=== PATIENT | female | born 1975 | race Caucasian/White ===

== ENCOUNTER 2016-09-14 06:14 | Day surgery (SDC) | payer OTHER ==
[2016-09-12 09:31] VITALS: BMI 33.5
[~2016-09-14 06:14] MED LIST: LACTATED RINGERS 1,000 ML IV SCH
[2016-09-14] MEDS ORDERED: LACTATED RINGERS 1,000 ML IV ONE (06:50)
[2016-09-14] MEDS ORDERED: LIDOCAINE 1% 20 ML VIAL (10MG/ML) FOR IV START INTRADERMA ONE (06:50)
[2016-09-14 06:51] VITALS: RESP 18; TEMP 97.7
[2016-09-14] MEDS ORDERED: fentaNYL (PF) 50 MCG/ML 2 ML AMP ONE (07:31)
[2016-09-14] MEDS ORDERED: TRIAMCINOLONE ACETONIDE 40 MG/ML 1 ML VIAL ONE (07:31)
[2016-09-14] MEDS ORDERED: MIDAZOLAM 2 MG/2 ML VIAL ONE (07:31)
[2016-09-14] MEDS ORDERED: BUPIVACAINE (PF) 0.5% 30 ML VIAL ONE (07:31)
--- NOTE | 2016-09-14 08:23 | P.PCN ---
Date of Procedure: 09/14/16 Procedure(s) Performed: PREOPERATIVE DIAGNOSIS: 1-Lumbar Spondylosis with Facet Arthropathy without myelopathy. 2- Lumber degenerative disc disease POSTOPERATIVE DIAGNOSIS: 1- Lumbar Spondylosis with Facet Arthropathy without myelopathy. 2- Lumber degenerative disc disease PROCEDURES : Right Radiofrequency thermocoagulation, L2-3 , L3-L4, L4-L5, and L5-S1 medial branch, with fluoroscopic guidance ANESTHESIA: IV sedation with versed 2 mg and fentaneyl 150 mcg and local infiltration with lidocaine 1% 6 ml EBL: Minimal PROCEDURE INDICATION: The patient with low back pain secondary to lumbar facet arthropathy who had more than 50% relief of her pain with previous diagnostic lumbar medial branch block with bupivacaine. PROCEDURE DESCRIPTION / TECHNIQUE: The patient was seen and identified in the preoperative area. Risks, benefits, complications, including but not limited to risk of infection ,bleeding , allergic reactions to the medications and no complete pain releife , and alternatives were discussed with the patient, the patient agreed to proceed with the procedure and signed the consent. IV was started. Vital signs remained stable throughout the procedure. Patient was taken to the OR and time out was completed. The patient was placed in the prone position on the procedure table. The lumber area was prepped and draped in the usual sterile fashion. . Vital signs were closely monitored during the procedure .IV sedation was used during the procedure to decrease patients anxiety. Using AP and then oblique fluoroscopy, the ``eye of the Daryl dog corresponding to the connection between the superior and transverse articular processes of right L2 ,L3, L4, and L5 were identified, marked, and localized with 1% lidocaine. Subsequently, a [id number] radiofrequency cannula with a 10-mm active tip was advanced guided by fluoroscopy to each of the ``eyes of the Daryl dog at right L2 , L3, L4, and L5. Each site then underwent sensory testing at 50 Hz and 0 to 1 volt and motor testing at 2.5 Hz and 0 to 3 volt with local stimulation, but no radicular symptoms down the legs. Thereafter the right L2-3 ,L3-4, L4-5, and L5-S1 sites underwent radiofrequency thermocoagulation at 80 degrees celsius for 90 seconds after injecting 0.5 ml of PF lidocaine 1%. then After the thermocoagulation done , 1 ml of the block solution containing Kenalog 40 mg and 3 ml of marain 0.5% was injected at the right L2-3 , L3-4 , L4-5 , and L5-S1, levels after negative aspiration of CSF and blood and with no paresthesias. Cannulas were retracted while injecting lidocaine 1% until the needle is out. At the end of the procedure, the skin was cleansed and bandages were applied. COMPLICATIONS: No acute complications. DISPOSITION / PLANS: The patient was placed in a supine position and transferred to the recovery area in a stable condition for observation and was discharged from the recovery room after meeting discharge criteria. Home discharge instructions given to the patient by the staff. The patient was reexamined prior to discharge. The patient will schedule a follow up in the clinic in 2-4 weeks.
--- NOTE | 2016-09-14 08:27 | FL ---
EXAMINATION TYPE: FL guided pain mgmt statistic DATE OF EXAM: 09/14/2016 8:18 AM HISTORY: Pain Right side radiofrequency lumbar 13 sec fluoro
[2016-09-14] MEDS ORDERED: IV FLUID CONTINUATION 1,000 ML IV ONE (08:57)
[2016-09-14 08:59] VITALS: BP 117/75; PULSE 75
== END 2016-09-14 09:11 | disposition home or self-care (01) ==
LOC: ORPAIN 06:14
PROVIDERS: ATTEND Specialist
DX: M47.816 Spondylosis without myelopathy or radiculopathy, lumbar region (principal); M46.96 Unspecified inflammatory spondylopathy, lumbar region; M51.36 Other intervertebral disc degeneration, lumbar region
CPT/HCPCS: 81025; 64635; 64636; J2250; J3301; J3010

== ENCOUNTER → 2016-10-25 | Outpatient (CLI) | payer OTHER ==
[2016-10-25 14:54] VITALS: BP 104/70; PULSE 88; RESP 18; TEMP 98.2
--- NOTE | 2016-10-25 15:13 | P.PN ---
Progress Note - Text Patient returns for followup for chronic "all over" pain. Patient recently underwent right lumbar RFA, which provided some relief for only two days' interval and then she developed excruciating pain when she worked at her job at [employer] for only 4-5 hours. Patient continues on Robaxin medications for pain with mild relief. Patient denies adverse drug effects from medications. Today , pt denies new-onset weakness, bowel/bladder incontinence, or any other signs or symptoms of cauda equina syndrome. There are no signs of acute intoxication, and no indications of medication diversion or overuse. In addition to above, 13-point review of systems is also negative for chest pain , shortness of breath, changes in vision, changes in hearing, new onset weakness , abdominal pain, diarrhea, extreme fatigue, malaise, fever, skin changes, homicidal or suicidal ideation, or bowel or bladder incontinence. Vital Signs: Reviewed in EMR Gen: WDWN, AAOx3, NAD HEENT: NCAT, EOMI, hearing grossly normal Pulm: resp unlabored Abd: soft, NT, ND Neck: supple, trachea midline TTP cervical paravertebral area, thoracic paravertebral area, lumbar paravertebral area Neuro: CN II-XII grossly intact, muscle strength lower extremities PRESERVED Imaging: Reviewed in EMR Assessment: 1. possible fibromyalgia 2. chronic pain syndrome Plan: 1. Explanation: Opioid and psychological risk scores were reviewed. Diagnoses , prognoses, and multiple treatment options including but not limited to physical therapy, interventional therapies, adjuvant medical therapies, narcotic medication therapies, and surgery were discussed with the patient and all questions were answered to the patient's satisfaction. 2. Opioid agreement: no opioids prescribed today 3. Counseling: The patient was counseled extensively on BODY MASS INDEX, EXERCISE. Specifically, the patient was instructed regarding the importance of weight control and exercise in the context of both chronic pain and overall health. 4. Procedures: none for now 5. Consultations: None 6. Investigations: None 7. Medications: Robaxin 750 BID #60 with five refills 8. Disposition: f/u as needed. Patient has not requested opioids and uses THC. She got minimal relief from lumbar RFA, so it is my opinion that it may not be worth continuing with injections for her. I will refer her to Dr. Sandoval , a physical medicine and fire protection specialist, to prescribe a good exercise and physical therapy regimen for her and possibly perform a functional capacity evaluation as well. Patient does not want any more injections and will follow up with our clinic as needed. PQRS measures: 1-Patient's medications are documented in the chart. 2-Tobacco use is positive, counseling given 3-Patient has not had a pneumococcal vaccine. 4-Advanced care planning discussed, patient unable to give. 5-Opioid contract signed with the patient. 6-follow up PRN 7-Patient's blood pressure measured and documented, and patient will follow up with the primary care due to hypertension. 8-Patient's weight was measured, and body mass index ABOVE the normal limits, and counseling was done. Patient instructed to follow up with PCP. 9-Patient WAS NOT identified as an unhealthy alcohol user.
== END | disposition home or self-care (01) ==
LOC: PNWHC3 14:23
PROVIDERS: ATTEND Anesthesiology
DX: G89.4 Chronic pain syndrome (principal); I10 Essential (primary) hypertension; F17.200 Nicotine dependence, unspecified, uncomplicated; Z71.6 Tobacco abuse counseling; Z71.3 Dietary counseling and surveillance; Z98.890 Other specified postprocedural states; Z79.899 Other long term (current) drug therapy
CPT/HCPCS: 99211

== ENCOUNTER → 2017-03-23 | Outpatient (CLI) | payer OTHER ==
--- NOTE | 2017-03-27 11:07 | MM ---
Reason for exam: screening (asymptomatic). Last mammogram was performed 1 year ago. Physical Findings: A clinical breast exam by your physician is recommended on an annual basis and results should be correlated with mammographic findings. MG Screening Mammo w CAD Bilateral CC and MLO view(s) were taken. Prior study comparison: March 22, 2016, bilateral MG screening mammo w CAD. October 17, 2014, mammogram, performed at [facility]. November 21, 2012, mammogram, performed at [facility]. The breast tissue is heterogeneously dense. This may lower the sensitivity of mammography. There is a new 6mm mass in the upper outer quadrant of the right breast at middle depth 6-7cm from nipple. Additional views will be performed for this mass. This finding is changed when compared with previous exams. ASSESSMENT: Incomplete: need additional imaging evaluation, BI-RAD 0 RECOMMENDATION: Special view mammogram of the right breast. If lesion persists on supplemental views, image directed ultrasound is recommended. [facility] will attempt to contact patient to return for supplemental views and ultrasound if indicated.
== END | disposition home or self-care (01) ==
LOC: RADMAMWWP 11:05
PROVIDERS: ATTEND Family Medicine
DX: Z12.31 Encounter for screening mammogram for malignant neoplasm of breast (principal)

== ENCOUNTER → 2017-03-28 | Outpatient (CLI) | payer OTHER ==
--- NOTE | 2017-03-28 09:17 | MM ---
Reason for exam: additional evaluation requested from abnormal screening. Last mammogram was performed less than 1 month ago. History: Family history of breast cancer in paternal cousin at age 35. Taking hormonal contraceptives beginning at age 40. Physical Findings: Nurse did not find any significant physical abnormalities on exam. MG Work Up Mamm w CAD RT Spot compression CC, spot compression MLO, and ML view(s) were taken of the right breast. Prior study comparison: March 23, 2017, bilateral MG screening mammo w CAD. March 22, 2016, bilateral MG screening mammo w CAD. October 17, 2014, mammogram, performed at [facility]. November 21, 2012, mammogram, performed at [facility]. The breast tissue is heterogeneously dense. This may lower the sensitivity of mammography. No distinct mass persists on additional views. These results were verbally communicated with the patient and result sheet given to the patient on 03/28/17. ASSESSMENT: Negative, BI-RAD 1 RECOMMENDATION: Return to routine screening mammogram schedule for both breasts.
== END | disposition home or self-care (01) ==
LOC: RADMAMWWP 08:13
PROVIDERS: ATTEND Family Medicine
DX: R92.8 Other abnormal and inconclusive findings on diagnostic imaging of breast (principal)

== ENCOUNTER 2017-05-15 09:00 | Day surgery (SDC) | payer OTHER ==
[2017-05-12 12:26] VITALS: BMI 38.7
[~2017-05-15 09:00] MED LIST changes: +LIDOCAINE 1% 20 ML VIAL (10MG/ML) FOR IV START INTRADERMA PRN
[2017-05-15 09:16] VITALS: RESP 16; TEMP 98.4
[2017-05-15] MEDS ORDERED: MIDAZOLAM 2 MG/2 ML VIAL ONE (10:05)
[2017-05-15] MEDS ORDERED: PROPOFOL 10 MG/ML 20 ML VIAL IV ONE (10:05)
[2017-05-15] MEDS ORDERED: LIDOCAINE 1% INJ 10MG/ML (20 ML MDV) ONE (10:05)
--- NOTE | 2017-05-15 10:29 | P.PCN ---
Date of Procedure: 05/15/17 Procedure(s) Performed: Procedure: Esophagogastroduodenoscopy and biopsy. Preoperative diagnosis: Chronic reflux symptoms requiring PPI therapy. Postoperative diagnosis: 1. Small sliding hiatal hernia with no obvious esophagitis or complicated reflux disease. 2. Mild antral gastritis. 3. Multiple biopsies obtained from the duodenum, antrum and esophagus. Preparation sedation: Were provided by anesthesia. Brief clinical history: The patient is a 51-year-old female who was evaluated in our office earlier this month referred regarding chronic reflux symptoms that responded to omeprazole therapy. This evaluation is scheduled because of recurrence of her symptoms if she misses a single dose of medication and to rule out other pathology. Procedure: With the patient on her left lateral decubitus position and after informed consent and adequate sedation, I passed the Olympus-GIF 160 video upper endoscope through the cricopharyngeus down the esophagus. GE junction was around 37 cm from the incisors and there was a small sliding hiatal hernia around 1 cm in size. The esophagus did not show any obvious erosions, ulcers, strictures or Velazquez's esophagus. The endoscope was then passed into the stomach which was insufflated with air and inspected in detail including the retroflex view in the cardia. There was some mottling and erythema in the antrum but no ulcers or erosions. Pyloric channel, duodenal bulb, post bulbar area and descending duodenum appeared within normal limits. Because of her symptoms, I obtained biopsies from the duodenum, antrum and esophagus then the endoscope was withdrawn. The patient tolerated the procedure well. Plan: The patient was reassured. Will await biopsy results. She will follow- up with you as planned. We would recommend that the patient continue antireflux diet and measures and to continue acid suppressive therapy at the minimal dose and frequency necessary to keep her symptoms under control.
[2017-05-15 10:51] VITALS: BP 140/81; PULSE 65
== END 2017-05-15 11:04 | disposition home or self-care (01) ==
LOC: ORWHC2ENDO 09:00
DX: K29.50 Unspecified chronic gastritis without bleeding (principal); K21.9 Gastro-esophageal reflux disease without esophagitis; K44.9 Diaphragmatic hernia without obstruction or gangrene; Z72.0 Tobacco use; F39 Unspecified mood [affective] disorder; M19.90 Unspecified osteoarthritis, unspecified site; Z79.1 Long term (current) use of non-steroidal anti-inflammatories (NSAID); Z79.891 Long term (current) use of opiate analgesic; Z79.899 Other long term (current) drug therapy
CPT/HCPCS: 81025; 88305; 88342; 43239; J2250; J2001; J2704

== ENCOUNTER → 2017-11-08 | Outpatient (CLI) | payer OTHER ==
--- NOTE | 2017-11-08 07:49 | MR ---
EXAMINATION TYPE: MR love wo con DATE OF EXAM: 11/08/2017 COMPARISON: 03/22/2016 HISTORY: Cervicalgia / Low back pain TECHNIQUE: T1 and T2 axial and sagittal images of the lumbar spine are submitted. FINDINGS: There is no abnormal signal seen within the visualized spinal cord or paraspinal soft tissu es. At L1-2 there is no disc herniation or canal stenosis. No foraminal encroachment. At L2-3 there is moderate to severe degenerative disc disease with central disc disc protrusion great er paracentrally the right. Facet arthropathy and ligamentum flavum are noted to be hypertrophied. Th is results in compression of the thecal sac and central spinal stenosis. At L3-4 there is broad-based central disc protrusion with marked hypertrophy of the ligamentum flavum and facet joints. Findings appear to be stable with moderate to severe central stenosis. There is si gnificant bilateral foraminal encroachment greater on the right with disc protrusion extending greate r laterally to the right. Finding is stable. At L4-5 there is diffuse central disc protrusion with facet arthropathy and ligamentum flavum hypertr ophy. There is moderate to severe central stenosis is stable from previous. At L5-S1 there is degenerative disc disease and advanced facet arthropathy. There is mild bilateral f oraminal encroachment. Borderline central stenosis due to diminutive spinal canal. IMPRESSION: 1. Stable MRI lumbar spine demonstrating multilevel degenerative disc disease with multilevel disc pr otrusions seen in association with hypertrophic changes. Findings result in multilevel significant ca nal stenosis with the most marked findings at level L2-3, L3-4, and L4-L5. EXAMINATION TYPE: MR guzman wo con DATE OF EXAM: 11/08/2017 COMPARISON: 03/22/2016 HISTORY: Cervicalgia / Low back pain TECHNIQUE: T1 sagittal and coronal, T2 sagittal, and gradient echo axial views of the cervical spine are submitted. FINDINGS: The cranial cervical junction is preserved. There is no abnormal signal seen within the sp inal cord or paraspinal soft tissues. At C2-3 there is no disc herniation or canal stenosis. Mild hypertrophic changes of facet joints. Tracy ral foramina patent. At C3-4 there is facet arthropathy greater on the right with uncovertebral joint hypertrophy greater on the right. Minimal right-sided neural foraminal encroachment is stable. No Canal stenosis. At C4-5 there is Central broad-based left paracentral disc bulging with displacement of thecal sac bu t no spinal cord contact appear stable. Facet arthropathy noted with no significant foraminal encroac hment. At C5-6 there is mild broad-based central disc bulging but no canal stenosis. No foraminal encroachme nt. At C6-7 there is no disc herniation or canal stenosis. No foraminal encroachment. At C7-T1 there is no disc herniation or canal stenosis. No foraminal encroachment. IMPRESSION: 1. Stable MRI demonstrating disc bulging at C4-5 and C5-C6 deformity of the thecal sac but no canal stenosis. 2. Right-sided facet arthropathy and uncovertebral joints C3-C4 results in mild right foraminal encro achment.
== END | disposition home or self-care (01) ==
LOC: RADMRIMAIN 06:06
PROVIDERS: ATTEND Psychiatry & Neurology Neurology
DX: M50.221 Other cervical disc displacement at C4-C5 level (principal); M46.92 Unspecified inflammatory spondylopathy, cervical region; M51.36 Other intervertebral disc degeneration, lumbar region; M48.061 Spinal stenosis, lumbar region without neurogenic claudication; M51.26 Other intervertebral disc displacement, lumbar region
CPT/HCPCS: 72141; 72148

== ENCOUNTER → 2018-03-06 | Outpatient (CLI) | payer OTHER ==
--- NOTE | 2018-03-06 13:28 | US ---
EXAMINATION TYPE: US abdomen complete DATE OF EXAM: 03/06/2018 COMPARISON: NONE CLINICAL HISTORY: R74.8 Elevated Alkaline Phospate Level. Abnormal labs, no pain EXAM MEASUREMENTS: Liver Length: 16.6 cm Gallbladder Wall: 0.2 cm CBD: 0.3 cm CHD: 0.3 cm Spleen: 11.1 cm Right Kidney: 9.7 x 4.9 x 4.6 cm Left Kidney: 11.5 x 4.2 x 5.1 cm Limited visualization due to patient body habitus Pancreas: Head and tail not well visualized due to overlying bowel gas Liver: Portions seen appear wnl Gallbladder: wnl Evidence for sonographic Chatterjee's sign: neg CBD: wnl CHD: wnl Spleen: wnl Right Kidney: wnl Left Kidney: wnl Upper IVC: wnl Abd Aorta: wnl The visualized liver is slightly heterogeneous. The intrahepatic portion of the IVC and visualized a bdominal aorta are within normal limits. There is no evidence of cholelithiasis. Common bile duct i s unremarkable. The visualized portions of the pancreas are homogenous. Portions of the head and keenan l are obscured by overlying bowel gas on images saved The spleen is unremarkable. Kidneys are symmet miguel and free of hydronephrosis. No renal lesions are seen. IMPRESSION: No suspicious finding is seen to account for patient's symptoms.
== END | disposition home or self-care (01) ==
LOC: RADUSWWP 12:13
PROVIDERS: ATTEND Family Medicine
DX: R74.8 Abnormal levels of other serum enzymes (principal)
CPT/HCPCS: 76700

== ENCOUNTER → 2018-03-29 | Outpatient (CLI) | payer MEDICARE, OTHER ==
--- NOTE | 2018-03-29 14:54 | US ---
EXAMINATION TYPE: US venous doppler duplex LE BI DATE OF EXAM: 03/29/2018 2:42 PM COMPARISON: NONE CLINICAL HISTORY: M25.472 M25.471 Effusion of left and right ankle. SIDE PERFORMED: Bilateral TECHNIQUE: The lower extremity deep venous system is examined utilizing real time linear array sonog robert with graded compression, doppler sonography and color-flow sonography. VESSELS IMAGED: External Iliac Vein (EIV) Common Femoral Vein Deep Femoral Vein Greater Saphenous Vein * Femoral Vein Popliteal Vein Small Saphenous Vein * (* superficial vessels) Right Leg: Negative for DVT Left Leg: Negative for DVT Grayscale, color doppler, spectral doppler imaging performed of the deep veins of the bilateral lower extremities. There is normal flow, compressibility, vascular waveforms. IMPRESSION: No ultrasound evidence for acute DVT in either lower extremity.
== END | disposition home or self-care (01) ==
LOC: RADUSWWP 14:11
PROVIDERS: ATTEND Family Medicine
DX: M25.471 Effusion, right ankle (principal); M25.472 Effusion, left ankle
CPT/HCPCS: 93970

== ENCOUNTER → 2018-04-09 | Outpatient (CLI) | payer MEDICARE, OTHER ==
--- NOTE | 2018-04-10 11:02 | MM ---
Reason for exam: screening (asymptomatic). Last mammogram was performed 1 year ago. History: Family history of breast cancer in paternal cousin at age 35. Taking hormonal contraceptives beginning at age 40. Physical Findings: A clinical breast exam by your physician is recommended on an annual basis and results should be correlated with mammographic findings. MG Screening Mammo w CAD Bilateral CC and MLO view(s) were taken. Prior study comparison: March 28, 2017, right breast MG work up mamm w CAD RT. March 23, 2017, bilateral MG screening mammo w CAD. The breast tissue is heterogeneously dense. This may lower the sensitivity of mammography. There is no discrete abnormality. ASSESSMENT: Negative, BI-RAD 1 RECOMMENDATION: Routine screening mammogram of both breasts in 1 year.
== END | disposition home or self-care (01) ==
LOC: RADMAMWWP 09:10
PROVIDERS: ATTEND Obstetrics & Gynecology
DX: Z12.31 Encounter for screening mammogram for malignant neoplasm of breast (principal)
CPT/HCPCS: 77067

== ENCOUNTER → 2018-10-26 | Outpatient (CLI) | payer MEDICARE, OTHER | END | disposition home or self-care (01) | LOC: PROCWHC3 12:17 | PROVIDERS: ATTEND Family Medicine | DX: R06.2 Wheezing (principal); R05 Cough | CPT/HCPCS: 87502 ==

== ENCOUNTER → 2018-12-27 | Outpatient (CLI) | payer MEDICARE, OTHER ==
--- NOTE | 2018-12-27 19:03 | CONS ---
CONSULTATION DATE OF SERVICE: 12/27/2018 This patient is a 43-year-old lady who has been evaluated in the sleep center for possible obstructive sleep apnea-hypopnea syndrome. HISTORY OF PRESENT ILLNESS/SLEEP-WAKE EVALUATION: The patient's usual sleep schedule on weekdays is from 2:30 p.m. to 9:45 p.m. She works from 11 p.m. to 7 a.m. On weekends, she sleeps from 8 p.m. to 10 a.m. No problems with falling asleep. She has a TV set in the bedroom, sleeps on the side position. She has loud snoring and wakes up from sleep with gasping for air, sweating and dry mouth. She goes to the restroom once at night. In the morning she wakes up tired, feels sleepy during the day with 2 cups of coffee daily. [place] Sleepiness Scale is 9. No history of hypnagogic hallucinations, sleep paralysis or cataplexy. PAST MEDICAL HISTORY: 1. Anxiety. 2. Depression. 3. Acid reflux. PAST SURGICAL HISTORY: 1. Surgery for carpal tunnel syndrome bilaterally. 2. Uterus ablation for bleeding. 3. D&C. MEDICATIONS: 1. Xanax. 2. Lamictal. 3. Celexa. 4. Omeprazole. SOCIAL HISTORY: Positive for smoking for about 30 years, starting at 1-1/2 pack a day down to half pack a day now. Alcohol consumption rarely. FAMILY HISTORY: Epilepsy, arthritis, sleep apnea. REVIEW OF SYSTEMS: Awakenings from sleep, tiredness and sleepiness. PHYSICAL EXAMINATION: GENERAL: A pleasant lady without distress. VITAL SIGNS: BP 119/67, HR 83, RR 18, height 5 feet 6 inches, weight 263.6 pounds, body mass index 42.4, temperature 98.7, oxygen saturation at room air 98%. HEENT: PERRLA, EOMI. Evaluation of oropharynx showed tongue protrudes midline. Low position of soft palate. Mallampati IV. Restriction of nasal breathing. NECK: Supple. No JVD. Thyroid is not palpable. Wide neck; 16-3/4 inches in circumference. LUNGS: Clear to percussion and to auscultation. Good air exchange. No wheezing or rhonchi. HEART: S1, S2 regular. No murmurs, gallops or rubs. ABDOMEN: Obese. EXTREMITIES: No clubbing or cyanosis. MEDIA LIBRARIAN: Awake, alert, and oriented X3. Cranial nerves 2 to 7 intact. There is no fasciculation or atrophy. noted. No focal deficits observed. IMPRESSION: 1. Loud snoring, awakenings from sleep with gasping for air and witnessed episodes of stopped breathing, wide neck, low position of soft palate, sleepiness; obstructive sleep apnea-hypopnea syndrome. 2. Obesity with body mass index of 42.4. 3. Acid reflux. 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 5. History of carpal tunnel syndrome, status post surgical treatment bilaterally. 6. Status post uterus ablation for bleeding. 7. Status post dilatation and curettage. 8. History of smoking for about 30 pack/years. At present the patient smokes about half a pack a day. PLAN: 1. Polysomnography for evaluation of patient's breathing during sleep. 2. CPAP/BiPAP titration if sleep study confirms obstructive sleep apnea-hypopnea syndrome. 3. Preferable position during sleep on the side. 4. No driving if patient feels any sleepiness. 5. I will see patient for follow up visit to explain results of testing and following plan. Thank you very much for referring this patient for consultation. Sincerely, Filemon Lynch MD, PhD, FAASM Diplomat of [employer] Clerk Stenographer of [facility] [place] MMODL / PAULN: [id number] /
== END | disposition home or self-care (01) ==
LOC: SLEEP 14:44
PROVIDERS: ATTEND Internal Medicine
DX: G47.33 Obstructive sleep apnea (adult) (pediatric) (principal); E66.9 Obesity, unspecified; K21.9 Gastro-esophageal reflux disease without esophagitis; F17.210 Nicotine dependence, cigarettes, uncomplicated; Z68.41 Body mass index [BMI] 40.0-44.9, adult; Z87.39 Personal history of other diseases of the musculoskeletal system and connective tissue; Z98.890 Other specified postprocedural states; Z79.899 Other long term (current) drug therapy
CPT/HCPCS: 99211

== ENCOUNTER → 2019-02-07 | Outpatient (CLI) | payer MEDICARE, OTHER ==
--- NOTE | 2019-02-07 19:08 | PN ---
PROGRESS NOTE DATE OF SERVICE: 02/07/2019 43-year-old lady who has been followed in Sleep Center to discuss results of the sleep study and following plan. The patient had sleep study on 12/31/2018 and today discussed results of sleep study with the patient in detail. This study did not show any significant respiratory abnormalities during the sleep. Total apnea-hypopnea index was 4. No obstructive apneas documented, only a few hypopneas and 1 central apnea. During the test, the patient was on the back position which is usually worse for respiration and at home she usually sleeps on the side. Sometimes patient feels sleepiness during the day. [place] Sleepiness Scale is 10. MEDICATIONS: 1. Xanax p.r.n. basis. 2. Lamictal. 3. Celexa. 4. Omeprazole. 5. PHYSICAL EXAM: Patient in no distress. BP 140/67, HR 72, RR 16, weight 265.4, oxygen saturation at room air 98%, temperature 98.2. Oropharynx low position of soft palate. Mallampati 3. Neck Supple, no JVD. Thyroid is not palpable. LUNGS Clear to percussion and to auscultation. Good air exchange. No wheezing or rhonchi. HEART S1, S2 regular. No murmurs, gallops, or rubs. ABDOMEN: Obese. Soft and nontender. Bowel sounds are present. No organomegaly appreciated. EXTREMITIES No clubbing or cyanosis. TOWER OBSERVER Awake, alert, and oriented X3. Cranial nerves 2 to 7 intact. There is no fasciculation or atrophy. noted. No focal deficits observed. IMPRESSION: 1. No significant abnormalities of respirations by results of polysomnogram. 2. Obesity. 3. Acid reflux. 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 5. History of carpal tunnel syndrome, status post surgical treatment bilaterally. 6. Status post uterus ablation for bleeding. 7. Status post D and C. 8. History of smoking for 30 pack years. Patient smokes presently about half pack a day or less than half pack a day. 9. Episodes of sweating and possibly hot flashes presently, probably perimenopause. PLAN: 1. Losing weight. 2. Sleep hygiene with regular time in bed for at least 8 hours. 3. Preferable position during the sleep on the side and slightly up. 4. No driving if feeling sleepiness. 5. Plan followup visit in 1 year or earlier if patient has problems. Thank you very much for allowing me to participate in management of your patient. Sincerely, Filemon Lynch MD, PhD, FAASM Diplomat of [employer] Traffic Operations Manager of [facility] [place] MMODL / PAULN: [id number] /
== END | disposition home or self-care (01) ==
LOC: SLEEP 14:47
PROVIDERS: ATTEND Internal Medicine
DX: E66.9 Obesity, unspecified (principal); K21.9 Gastro-esophageal reflux disease without esophagitis; R61 Generalized hyperhidrosis; F17.210 Nicotine dependence, cigarettes, uncomplicated; Z87.39 Personal history of other diseases of the musculoskeletal system and connective tissue; Z98.890 Other specified postprocedural states; Z79.899 Other long term (current) drug therapy

== ENCOUNTER → 2019-05-14 | Outpatient (CLI) | payer MEDICARE, OTHER ==
--- NOTE | 2019-05-16 09:43 | MM ---
Reason for exam: screening (asymptomatic). Last mammogram was performed 1 year and 1 month ago. History: Family history of breast cancer in paternal cousin at age 35. Taking hormonal contraceptives beginning at age 40. Physical Findings: A clinical breast exam by your physician is recommended on an annual basis and results should be correlated with mammographic findings. MG Screening Mammo w CAD Bilateral CC and MLO view(s) were taken. Prior study comparison: April 09, 2018, bilateral MG screening mammo w CAD. March 28, 2017, right breast MG work up mamm w CAD RT. There are scattered fibroglandular densities. No significant changes when compared with prior studies. ASSESSMENT: Negative, BI-RAD 1 RECOMMENDATION: Routine screening mammogram of both breasts in 1 year.
== END ==
LOC: RADMAMWWP 14:52
PROVIDERS: ATTEND Family Medicine
DX: Z12.31 Encounter for screening mammogram for malignant neoplasm of breast (principal)
CPT/HCPCS: 77067

== ENCOUNTER → 2019-06-14 | Outpatient (CLI) | payer MEDICARE, OTHER ==
--- NOTE | 2019-06-14 08:37 | US ---
EXAMINATION TYPE: US abdomen complete DATE OF EXAM: 06/14/2019 COMPARISON: US 2018 CLINICAL HISTORY: R74.8 elevated alkaline phosphate level. Elevated liver enzymes, patient states no other symptoms. EXAM MEASUREMENTS: Liver Length: 16.3 cm Gallbladder Wall: 0.1 cm CBD: 0.4 cm Spleen: 12.2 cm Right Kidney: 10.7 x 4.8 x 6.2 cm Left Kidney: 11.3 x 5.6 x 5.5 cm Difficult and limited study due to patient body habitus Pancreas: visualized portions wnl, limited by overlying midline bowel gas Liver: mildly course echotexture Gallbladder: wnl Evidence for sonographic Chatterjee's sign: no CBD: visualized portions wnl, limited by overlying bowel gas Spleen: visualized portions wnl, limited by overlying bowel gas Right Kidney: wnl Left Kidney: wnl Upper IVC: wnl Abd Aorta: wnl The visualized liver is heterogeneous. No suspicious intrahepatic ductal dilatation. The intrahepati c portion of the IVC and visualized abdominal aorta are within normal limits. There is no evidence o f cholelithiasis. Common bile duct is unremarkable. The visualized portions of the pancreas are hector ogenous. The spleen is unremarkable. Kidneys are symmetric and free of hydronephrosis. No renal le sions are seen. IMPRESSION: Heterogeneous hyperechoic appearance of the liver redemonstrated likely on basis of diffu se fatty infiltration.
== END | disposition home or self-care (01) ==
LOC: RADUSWWP 07:44
PROVIDERS: ATTEND Family Medicine
DX: R74.8 Abnormal levels of other serum enzymes (principal)
CPT/HCPCS: 76700

== ENCOUNTER → 2020-05-25 | Outpatient (CLI) | payer MEDICARE, OTHER ==
--- NOTE | 2020-05-26 06:53 | US ---
EXAMINATION TYPE: US transvaginal DATE OF EXAM: 05/25/2020 COMPARISON: NONE CLINICAL HISTORY: N92.0 MENORRHAGIA WITH REGULAR CYCLES. Menorrhagia with regular cycles. Hx ablation , tubal ligation. . TECHNIQUE: Transvaginal (TV). Date of LMP: Unknown EXAM MEASUREMENTS: Uterus: 9.2 x 5.2 x 4.3 cm Endometrial Stripe: Limited, measured at 0.7 cm Right Ovary: 3.4 x 1.8 x 2.0 cm Left Ovary: 2.8 x 1.8 x 1.3 cm 1. Uterus: Anteverted Appears very heterogeneous. Multiples subcentimeter anechoic areas in cervix. Largest measures: 0.9 x 0.6 x 0.7 cm. Complex, mostly anechoic area seen mid uterus measurin.7 x 0.8 x 0.5 cm. 2. Endometrium: Limited visibility. 3. Right Ovary: Complex area seen measurin.7 x 1.5 x 1.6 cm. Ovary is positioned posterior to th e uterus. 4. Left Ovary: Appears to be wnl. 5. Bilateral Adnexa: Appear wnl. 6. Posterior cul-de-sac: Minimal fluid seen measurin.3 x 0.6 x 1.0 cm. Heterogeneous uterus with tiny marginal trapped fluid lower uterine segment and/or cervical canal. Po or visualization of the endometrium which does not appear suspiciously thickened. Trace free fluid pe lvic cul-de-sac. Some nabothian and/or endometrial cysts are present. Right ovary has heterogeneous 1.8 cm peripheral hypervascular hypoechoic lesion suspicious for hemorr hagic cyst. Left ovary is normal in size. IMPRESSION: Source of patient's symptoms not identified.
== END ==
LOC: RADUSWWP 16:49
PROVIDERS: ATTEND Obstetrics & Gynecology
DX: N92.0 Excessive and frequent menstruation with regular cycle (principal)
CPT/HCPCS: 76830

== ENCOUNTER → 2020-06-11 | Outpatient (CLI) | payer MEDICARE, OTHER ==
--- NOTE | 2020-06-15 13:56 | MM ---
Reason for exam: screening (asymptomatic). Last mammogram was performed 1 year and 1 month ago. History: Family history of breast cancer in paternal cousin at age 35. Taking hormonal contraceptives beginning at age 40. Physical Findings: A clinical breast exam by your physician is recommended on an annual basis and results should be correlated with mammographic findings. MG Screening Mammo w CAD Bilateral CC and MLO view(s) were taken. Prior study comparison: May 14, 2019, bilateral MG screening mammo w CAD. April 09, 2018, bilateral MG screening mammo w CAD. The breast tissue is heterogeneously dense. This may lower the sensitivity of mammography. No significant changes when compared with prior studies. ASSESSMENT: Benign, BI-RAD 2 RECOMMENDATION: Routine screening mammogram of both breasts in 1 year. Manage patient on a clinical basis.
== END | disposition home or self-care (01) ==
LOC: RADMAMWWP 07:54
PROVIDERS: ATTEND Family Medicine
DX: Z12.31 Encounter for screening mammogram for malignant neoplasm of breast (principal)
CPT/HCPCS: 77067

== ENCOUNTER → 2021-07-08 | Outpatient (CLI) | payer MEDICARE, OTHER ==
--- NOTE | 2021-07-09 11:52 | MM ---
Reason for exam: screening (asymptomatic). Last mammogram was performed 1 year and 1 month ago. History: Family history of breast cancer in paternal cousin at age 35. Taking hormonal contraceptives beginning at age 40. Physical Findings: A clinical breast exam by your physician is recommended on an annual basis and results should be correlated with mammographic findings. MG Screening Mammo w CAD Bilateral CC and MLO view(s) were taken. Prior study comparison: June 11, 2020, bilateral MG screening mammo w CAD. May 14, 2019, bilateral MG screening mammo w CAD. There are scattered fibroglandular densities. There is no discrete abnormality. ASSESSMENT: Negative, BI-RAD 1 RECOMMENDATION: Routine screening mammogram of both breasts in 1 year.
== END ==
LOC: RADMAMWWP 07:57
PROVIDERS: ATTEND Family Medicine
DX: Z12.31 Encounter for screening mammogram for malignant neoplasm of breast (principal); Z80.3 Family history of malignant neoplasm of breast; R92.8 Other abnormal and inconclusive findings on diagnostic imaging of breast
CPT/HCPCS: 77067

== ENCOUNTER 2021-08-02 07:50 | Emergency (ER) | payer MEDICARE, OTHER ==
[2021-08-02 07:56] VITALS: RESP 18; TEMP 98
[2021-08-02] MEDS ORDERED: KETOROLAC 15 MG/ML 1 ML VIAL IM STA (08:08)
--- NOTE | 2021-08-02 08:36 | ED ---
General Adult HPI - General Chief complaint: Extremity Injury, Lower Stated complaint: pinched nerve in leg Time Seen by Provider: 08/02/21 07:50 Source: patient, RN notes reviewed, old records reviewed Mode of arrival: ambulatory Limitations: no limitations - History of Present Illness Initial comments: This is a 46-year-old female presents emergency Department complaining of pain for 2 months and her left leg from the lateral aspect of hip down the anterior aspect of her thigh down past her knee down to her mid leg. Patient states is no swelling there is been no injury there is no redness there is no numbness or focal weakness. Patient states it hurts when she first gets out of bed and start walking around. Patient states the more she walks round pains eventually subsides and he feels much better. Patient states she went to see a neurologist gave her shot of Toradol and he worked for about 8 hours but after that the pain was back and she states she cannot deal with it any longer. Patient denies any back pain. - Related Data Home Medications Medication Instructions Recorded Confirmed ALPRAZolam [Xanax] 0.5 tab PO BID PRN 04/28/16 05/12/17 Citalopram Hydrobromide [CeleXA] 20 mg PO QAM 04/28/16 05/12/17 Naproxen Sodium [Aleve] 440 mg PO DAILY PRN 04/28/16 05/12/17 Glucosamine/Chondr Martínez A Sod [Osteo 1 each PO DAILY 05/12/17 05/12/17 Bi-Flex Caplet] Methocarbamol [Robaxin-750] 750 mg PO BID PRN 05/12/17 05/12/17 Multivitamins, Thera [Multivitamin 1 tab PO DAILY 05/12/17 05/12/17 (formulary)] [place]-3 Fatty Acids/Fish Oil [Fish 1 each PO DAILY 05/12/17 05/12/17 Oil 1,000 mg Softgel] Omeprazole 20 mg PO QAM 05/12/17 05/12/17 Turmeric Root Extract [Turmeric] 500 mg PO DAILY 05/12/17 05/12/17 oxyCODONE-APAP 5-325MG [Percocet 1 tab PO BID PRN 05/12/17 05/12/17 5-325 mg] Previous Rx's Medication Instructions Recorded predniSONE [Deltasone] 40 mg PO DAILY #8 tab 08/02/21 Allergies Allergy/AdvReac Type Severity Reaction Status Date / Time No Known Allergies Allergy Verified 08/02/21 07:51 Review of Systems ROS Statement: Those systems with pertinent positive or pertinent negative responses have been documented in the HPI. ROS Other: All systems not noted in ROS Statement are negative. Past Medical History Past Medical History: GERD/Reflux, Osteoarthritis (OA) Additional Past Medical History / Comment(s): back and neck pain, History of Any Multi-Drug Resistant Organisms: None Reported Past Surgical History: Orthopedic Surgery, Tubal Ligation, Uterine Ablation Additional Past Surgical History / Comment(s): remedios carpal tunnel, D&C 06/06/16 with ablation,PAIN CLINIC INJECTIONS Past Anesthesia/Blood Transfusion Reactions: Motion Sickness Additional Past Anesthesia/Blood Transfusion Reaction / Comment(s): no hx blood transfusion Past Psychological History: Anxiety Smoking Status: Current every day smoker Past Alcohol Use History: None Reported Past Drug Use History: Marijuana - Past Family History Mother Family Medical History: No Reported History General Exam - General Exam Comments Initial Comments: GENERAL Patient is well-developed and well-nourished. Patient is in mild distress. EYES Patient's pupils are equal and round. Extraocular motion is intact SKIN Unremarkable NEURO The patient is alert and oriented 3 PYSCH Patient has normal interpersonal interactions. MUSCULOSKELETAL Patient has pain in the anterior thigh anterior leg and lateral hip with movement of the leg on passive movement the pain is considerably reduced. Patient does have full range of motion of her knee and hip. Limitations: no limitations Course Vital Signs 08/02/21 07:51 Temperature 98 F Pulse Rate 96 Respiratory 18 Rate Blood Pressure 132/97 O2 Sat by Pulse 99 Oximetry Medical Decision Making - Medical Decision Making X-ray of the femur shows no acute abnormality. X-ray lumbosacral spine shows impingement of the lateral foramen at L3-L4 versus spinal stenosis. This is consistent with the patient's symptoms. Patient had a Toradol shot emergency department and was feeling better. Disposition Clinical Impression: Sciatica Disposition: HOME SELF-CARE Instructions (If sedation given, give patient instructions): Sciatica (ED) Prescriptions: predniSONE [Deltasone] 40 mg PO DAILY #8 tab Is patient prescribed a controlled substance at d/c from ED?: No Referrals: Carmen Irwin DO [Doctor of Osteopathic Medicine] - 1-2 days Time of Disposition: 09:43
--- NOTE | 2021-08-02 09:13 | XR ---
EXAMINATION TYPE: XR femur LT DATE OF EXAM: 08/02/2021 COMPARISON: None HISTORY: Left femur TECHNIQUE: 2 view left femur FINDINGS: Femoral head articulates with the acetabulum. Joint spaces are preserved. No joint effusion is evident. No acute fracture or dislocation is evident. Follow-up exam can be performed 7-10 days from acute trauma for continued pain. IMPRESSION: 1. Normal 2 view left femur
--- NOTE | 2021-08-02 09:15 | XR ---
EXAMINATION TYPE: XR lumbosacral spine min 4V DATE OF EXAM: 08/02/2021 COMPARISON: None HISTORY: Low back pain, leg pain TECHNIQUE: 5V lumbar spine FINDINGS: There are 5 lumbar-type vertebral bodies. Pedicles are intact. Mild facet degenerative james ges present L4-5. Spondylosis is present. There may be mild disc space narrowing present L2-L3 4. Rem aining Disc heights appear preserved. Vertebral body heights are preserved. IMPRESSION: 1. Mild degenerative disc changes L2-3 L3-4.
[2021-08-02] MEDS ORDERED: ACET/COD 300 MG/30 MG STARTER PACK 6 TAB BTL PO STA (09:44)
[2021-08-02 09:54] VITALS: BP 124/77; PULSE 88
== END 2021-08-02 09:54 | disposition home or self-care (01) ==
LOC: EC 07:50
DX: M54.32 Sciatica, left side (principal); K21.9 Gastro-esophageal reflux disease without esophagitis; M19.90 Unspecified osteoarthritis, unspecified site; F17.200 Nicotine dependence, unspecified, uncomplicated; Z79.899 Other long term (current) drug therapy
CPT/HCPCS: 72110; 73552; 99283; 96372; J1885

== ENCOUNTER 2021-08-21 05:59 | Emergency (ER) | payer MEDICARE, OTHER ==
[2021-08-21 06:07] VITALS: BP 145/79; PULSE 82; RESP 32; TEMP 97
[2021-08-21] MEDS ORDERED: KETOROLAC 15 MG/ML 1 ML VIAL IM STA (06:19)
[2021-08-21] MEDS ORDERED: MORPHINE SULFATE 4 MG/ML SYRINGE IM STA (06:34)
[2021-08-21] MEDS ORDERED: methylPREDNISolone SOD SUCCI 125 MG/2 ML VIAL IM ONE (06:34)
--- NOTE | 2021-08-21 06:58 | ED ---
Extremity Problem HPI - General Chief complaint: Extremity Problem,Nontraumatic Stated complaint: Leg Pain Time Seen by Provider: 08/21/21 06:17 Source: patient, RN notes reviewed Mode of arrival: wheelchair Limitations: no limitations - History of Present Illness Initial comments: Patient is a 46-year-old female that was recently diagnosed with left-sided sciatica. She notes this pain is been going on for the last several months. She notes she has injection scheduled for Monday but has had increasing pain. She notes that she is asleep. She notes she wanted symptom medic control. She denied any new injury or trauma. She denied chest pain shortness of breath headache nausea vomiting diarrhea constipation fever fatigue chills several anesthesia bladder or bowel incontinence. - Related Data Home Medications Medication Instructions Recorded Confirmed ALPRAZolam [Xanax] 0.5 tab PO BID PRN 04/28/16 05/12/17 Citalopram Hydrobromide [CeleXA] 20 mg PO QAM 04/28/16 05/12/17 Naproxen Sodium [Aleve] 440 mg PO DAILY PRN 04/28/16 05/12/17 Glucosamine/Chondr Martínez A Sod [Osteo 1 each PO DAILY 05/12/17 05/12/17 Bi-Flex Caplet] Methocarbamol [Robaxin-750] 750 mg PO BID PRN 05/12/17 05/12/17 Multivitamins, Thera [Multivitamin 1 tab PO DAILY 05/12/17 05/12/17 (formulary)] [place]-3 Fatty Acids/Fish Oil [Fish 1 each PO DAILY 05/12/17 05/12/17 Oil 1,000 mg Softgel] Omeprazole 20 mg PO QAM 05/12/17 05/12/17 Turmeric Root Extract [Turmeric] 500 mg PO DAILY 05/12/17 05/12/17 oxyCODONE-APAP 5-325MG [Percocet 1 tab PO BID PRN 05/12/17 05/12/17 5-325 mg] Previous Rx's Medication Instructions Recorded predniSONE [Deltasone] 40 mg PO DAILY #8 tab 08/02/21 traZODone HCL [Desyrel] 50 mg PO HS 10 Days #10 tab 08/21/21 Allergies Allergy/AdvReac Type Severity Reaction Status Date / Time No Known Allergies Allergy Verified 08/21/21 06:04 Review of Systems ROS Statement: Those systems with pertinent positive or pertinent negative responses have been documented in the HPI. ROS Other: All systems not noted in ROS Statement are negative. Past Medical History Past Medical History: GERD/Reflux, Osteoarthritis (OA) Additional Past Medical History / Comment(s): back and neck pain, History of Any Multi-Drug Resistant Organisms: None Reported Past Surgical History: Orthopedic Surgery, Tubal Ligation, Uterine Ablation Additional Past Surgical History / Comment(s): remedios carpal tunnel, D&C 06/06/16 with ablation,PAIN CLINIC INJECTIONS Past Anesthesia/Blood Transfusion Reactions: Motion Sickness Additional Past Anesthesia/Blood Transfusion Reaction / Comment(s): no hx blood transfusion Past Psychological History: Anxiety Smoking Status: Current every day smoker Past Alcohol Use History: None Reported Past Drug Use History: Marijuana - Past Family History Mother Family Medical History: No Reported History General Exam Limitations: no limitations General appearance: alert, in no apparent distress, obese Head exam: Present: atraumatic, normocephalic, normal inspection Eye exam: Present: normal appearance, PERRL, EOMI. Absent: scleral icterus, conjunctival injection, periorbital swelling ENT exam: Present: normal exam, mucous membranes moist Neck exam: Present: normal inspection Respiratory exam: Present: normal lung sounds bilaterally. Absent: respiratory distress, wheezes, rales, rhonchi, stridor Cardiovascular Exam: Present: regular rate, normal rhythm, normal heart sounds. Absent: systolic murmur, diastolic murmur, rubs, gallop, clicks Extremities exam: Present: normal inspection, full ROM, normal capillary refill. Absent: tenderness, pedal edema, joint swelling, calf tenderness Back exam: Present: normal inspection, tenderness (Left si) Neurological exam: Present: alert, oriented X3 Psychiatric exam: Present: normal affect, normal mood Skin exam: Present: warm, dry, intact, normal color. Absent: rash Course Vital Signs 08/21/21 06:04 Temperature 97.0 F L Pulse Rate 82 Respiratory 32 H Rate Blood Pressure 145/79 O2 Sat by Pulse 98 Oximetry Medical Decision Making - Medical Decision Making 46-year-old female with sciatic back pain. 4 mg of morphine, 125 mg of Solu-Medrol ordered. Patient is agreeable to discharge home before morphine cakes insertion get some sleep. Patient was otherwise well-appearing. Case discussed with Dr. Cao. Disposition Clinical Impression: Sciatica Disposition: HOME SELF-CARE Condition: Stable Instructions (If sedation given, give patient instructions): Sciatica (ED) Additional Instructions: Please return to the Emergency Department if symptoms worsen or any other concerns. Follow-up with primary care 1-2 days. Take trazodone as prescribed with sleep. Follow-up with pain specialist as planned. Prescriptions: traZODone HCL [Desyrel] 50 mg PO HS 10 Days #10 tab Is patient prescribed a controlled substance at d/c from ED?: No Referrals: Zahida Ortega MD [Primary Care Provider] - 1-2 days Time of Disposition: 06:57
== END 2021-08-21 07:12 | disposition home or self-care (01) ==
LOC: EC 05:59
DX: M54.32 Sciatica, left side (principal); K21.9 Gastro-esophageal reflux disease without esophagitis; M19.90 Unspecified osteoarthritis, unspecified site; F41.9 Anxiety disorder, unspecified; F17.200 Nicotine dependence, unspecified, uncomplicated; E66.9 Obesity, unspecified; F12.90 Cannabis use, unspecified, uncomplicated; Z79.1 Long term (current) use of non-steroidal anti-inflammatories (NSAID); Z79.899 Other long term (current) drug therapy; Z68.41 Body mass index [BMI] 40.0-44.9, adult
CPT/HCPCS: 99283; 96372 ×2; J2270; J2930

== ENCOUNTER 2021-08-22 12:20 | Emergency (ER) | payer MEDICARE, OTHER ==
[2021-08-22 12:36] VITALS: RESP 18
[2021-08-22] MEDS ORDERED: ORPHENADRINE 30 MG/ML 2 ML VIAL IM STA (12:39)
[2021-08-22] MEDS ORDERED: KETOROLAC 15 MG/ML 1 ML VIAL IM STA (12:39)
--- NOTE | 2021-08-22 12:48 | ED ---
General Adult HPI - General Chief complaint: Back Pain/Injury Stated complaint: sciatica pain Time Seen by Provider: 08/22/21 12:30 Source: patient, EMS, RN notes reviewed, old records reviewed Mode of arrival: EMS Limitations: no limitations - History of Present Illness Initial comments: 46-year-old female presents to the emergency room via EMS with complaints of left hip and left ward pain. Patient states she was seen in the emergency room yesterday and given Solu-Medrol and morphine with no relief. She has been told to take gabapentin but states that she stopped it a month ago because it was not helping. She does have an appointment with her pain management doctor tomorrow. She denies any bowel or bladder incontinence, no fevers, and she is able to move the legs and she has good sensation. She does have history of sciatica, degenerative disc disease at L2 through L3 and L3 through L4. She has had MRIs in the past and recent LS spine x-ray August 02. -: month(s) (2) Location: left, lower extremity Severity scale (1-10): 10 Quality: sharp, other (shooting) Consistency: constant Improves with: none Worsens with: movement Associated Symptoms: denies other symptoms - Related Data Home Medications Medication Instructions Recorded Confirmed ALPRAZolam [Xanax] 0.5 tab PO BID PRN 04/28/16 08/22/21 Citalopram Hydrobromide [CeleXA] 20 mg PO QAM 04/28/16 08/22/21 Naproxen Sodium [Aleve] 440 mg PO DAILY PRN 04/28/16 08/22/21 Multivitamins, Thera [Multivitamin 1 tab PO DAILY 05/12/17 08/22/21 (formulary)] Omeprazole 20 mg PO QAM 05/12/17 08/22/21 Acetaminophen-Codeine 300-30mg 1 tab PO BID 08/22/21 08/22/21 [Tylenol w/codeine #3] Previous Rx's Medication Instructions Recorded traZODone HCL [Desyrel] 50 mg PO HS 10 Days #10 tab 08/21/21 Allergies Allergy/AdvReac Type Severity Reaction Status Date / Time fentanyl Allergy Itching Verified 08/22/21 12:31 Review of Systems ROS Statement: Those systems with pertinent positive or pertinent negative responses have been documented in the HPI. ROS Other: All systems not noted in ROS Statement are negative. Past Medical History Past Medical History: GERD/Reflux, Osteoarthritis (OA) Additional Past Medical History / Comment(s): back and neck pain, History of Any Multi-Drug Resistant Organisms: None Reported Past Surgical History: Orthopedic Surgery, Tubal Ligation, Uterine Ablation Additional Past Surgical History / Comment(s): remedios carpal tunnel, D&C 06/06/16 with ablation,PAIN CLINIC INJECTIONS Past Anesthesia/Blood Transfusion Reactions: Motion Sickness Additional Past Anesthesia/Blood Transfusion Reaction / Comment(s): no hx blood transfusion Past Psychological History: Anxiety Smoking Status: Current every day smoker Past Alcohol Use History: None Reported Past Drug Use History: Marijuana - Past Family History Mother Family Medical History: No Reported History General Exam Limitations: no limitations General appearance: alert, in distress (related to pain) Head exam: Present: atraumatic, normocephalic, normal inspection Eye exam: Present: normal appearance Neck exam: Present: normal inspection, full ROM. Absent: tenderness, meningismus, lymphadenopathy Respiratory exam: Present: normal lung sounds bilaterally. Absent: respiratory distress, wheezes, rales, rhonchi, stridor, decreased breath sounds Cardiovascular Exam: Present: regular rate, normal rhythm, normal heart sounds. Absent: systolic murmur, diastolic murmur, rubs, gallop, clicks, JVD Extremities exam: Present: normal capillary refill. Absent: pedal edema, joint swelling, calf tenderness Left Hip exam: Present: normal inspection, tenderness Upper Leg exam: Present: normal inspection Knee exam: Present: normal inspection Lower Leg exam: Present: normal inspection Ankle exam: Present: normal inspection Foot/Toe exam: Present: normal inspection, tenderness (ward) Neurovascular tendon exam: Present: no vascular compromise Back exam: Present: normal inspection Course Vital Signs 08/22/21 08/22/21 12:23 14:25 Temperature 98.4 F 97.5 F L Pulse Rate 86 97 Respiratory 18 18 Rate Blood Pressure 168/90 122/79 O2 Sat by Pulse 99 96 Oximetry Medical Decision Making - Medical Decision Making 46-year-old female presents via EMS with complaints of left hip and left ward pain. She was seen in the ER yesterday for the same pain and given Solu-Medrol and morphine and discharged with Tylenol threes. In the past she was prescribed gabapentin but states that she stopped it a month ago because it was not helpin g. She denies any bowel or bladder incontinence, no fevers, and she is able to move the legs and she has good sensation. She does have history of sciatica, DDD at L2-L3 and L3-L4. She had LS spine x-ray August 02 and denies any recent injury. She does have an appointment with her pain management doctor tomorrow. She currently denies low back pain and she states that she has left lateral hip pain and left lower leg pain. She has been using Asper creme and Tigerbalm with no relief. She was given Norflex and Toradol in the emergency room and appears more comfortable resting on the cart. She was discharged home and directed to continue previously prescribed medications and keep her appointment with her doctor tomorrow. Case discussed with Dr. Monahan. Disposition Clinical Impression: Hip pain, Leg pain Disposition: HOME SELF-CARE Condition: Good Instructions (If sedation given, give patient instructions): Hip Pain (ED), Leg Pain (ED) Additional Instructions: Continue medications as previously prescribed. Keep your appointment with your doctor tomorrow for continuation of care. Is patient prescribed a controlled substance at d/c from ED?: No Referrals: Zahida Ortega MD [Primary Care Provider] - 1-2 days Time of Disposition: 13:22
[2021-08-22 14:39] VITALS: BP 122/79; PULSE 97; TEMP 97.5
== END 2021-08-22 14:25 | disposition home or self-care (01) ==
LOC: EC 12:20
DX: M25.552 Pain in left hip (principal); M79.662 Pain in left lower leg; K21.9 Gastro-esophageal reflux disease without esophagitis; M19.90 Unspecified osteoarthritis, unspecified site; F41.9 Anxiety disorder, unspecified; F17.200 Nicotine dependence, unspecified, uncomplicated; F12.90 Cannabis use, unspecified, uncomplicated; Z79.1 Long term (current) use of non-steroidal anti-inflammatories (NSAID); Z79.899 Other long term (current) drug therapy
CPT/HCPCS: 99283; 96372 ×2; J2360; J1885

== ENCOUNTER → 2021-09-21 | Outpatient (CLI) | payer MEDICARE, OTHER ==
[2021-09-21 16:51] LABS: INR 0.9 (<1.2); Partial Thromboplastin Time 23.6 sec (22.0-30.0); Prothrombin Time 9.9 sec (9.0-12.0)
[2021-09-21 17:45] LABS: Appearance,Urine Cloudy (Clear); Bacteria,Urine Occasional /hpf; Bilirubin,Urine Negative (Negative); Blood,Urine Negative (Negative); Color,Urine Yellow; Glucose,Urine (UA) Negative (Negative); Hyaline Casts,Urine 1 /lpf (0-2); Ketones,Urine Negative (Negative); Leukocyte Esterase,Urine Negative (Negative); Mucus,Urine Few /hpf; Nitrite,Urine Negative (Negative); PH, Urine 5.5 (5.0-8.0); Protein,Urine Trace (Negative); RBC,Urine 1 /hpf (0-5); Specific Gravity,Urine 1.022 (1.001-1.035); Squamous Epithelial Cell,Urine 12 /hpf (0-4); WBC,Urine 1 /hpf (0-5)
[2021-09-22 00:41] LABS: African American GFR (CKD) 94.8 (60.0-200.0); Albumin 3.9 g/dL (3.8-4.9); Albumin/Globulin Ratio 1.55 (1.60-3.17); Anion Gap 14.4 mmol/L (10.00-18.00); BUN/Creat Ratio 10.75 Ratio (12.00-20.00); Blood Urea Nitrogen 9.1 mg/dL (9.0-27.0); Calcium 8.8 mg/dL (8.7-10.3); Globulin 2.5 g/dL (1.6-3.3); Non-African American GFR(CKD) 81.8 (60.0-200.0); Potassium 3.6 mmol/L (3.5-5.5); Total Bilirubin 0.2 mg/dL (0.30-1.20); Total Protein 6.3 g/dL (6.2-8.2)
[2021-09-22 01:06] LABS: Basophils # (A) 0.05 X 10*3/uL (0.00-0.10); Basophils % (A) 0.5 %; Eosinophils # (A) 0.23 X 10*3/uL (0.04-0.35); Eosinophils % (A) 2.4 %; HCT 39.2 % (37.2-46.3); HGB 12.8 g/dL (12.0-15.0); Lymphocytes # (A) 3.75 X 10*3/uL (0.90-5.00); Lymphocytes % (A) 39.2 %; MCH 29.6 pg (27.0-32.0); MCHC 32.7 g/dL (32.0-37.0); MCV 90.7 fL (80.0-97.0); Mean Platelet Volume 10.1 fL (9.5-12.2); Monocytes # (A) 0.67 X 10*3/uL (0.20-1.00); Neutrophils # (A) 4.83 X 10*3/uL (1.80-7.70); Neutrophils % (A) 50.5 %; Platelet Count 357 X 10*3/uL (140-440); RBC 4.32 X 10*6/uL (4.10-5.20); RDW 13.2 % (11.5-14.5); WBC 9.57 X 10*3/uL (4.50-10.00)
--- NOTE | 2021-09-22 07:39 | XR ---
EXAMINATION TYPE: XR chest 2V DATE OF EXAM: 09/21/2021 COMPARISON: NONE HISTORY: Chest pain TECHNIQUE: Frontal and lateral views of the chest are obtained. FINDINGS: There is no focal air space opacity. No evidence for pneumothorax. No pleural effusion. The cardiac silhouette size is within normal limits. The osseous structures are grossly intact. IMPRESSION: 1. No acute cardiopulmonary process.
== END | disposition home or self-care (01) ==
LOC: LABPAT 08:40
PROVIDERS: ATTEND Orthopaedic Surgery Orthopaedic Surgery of the Spine
DX: Z01.812 Encounter for preprocedural laboratory examination (principal); M48.061 Spinal stenosis, lumbar region without neurogenic claudication
CPT/HCPCS: 71046; 80053; 81001; 85025; 85610; 85730; 87070; 93005

== ENCOUNTER 2021-09-27 06:53 | Day surgery (SDC) | payer MEDICARE, OTHER ==
[2021-09-20 14:12] VITALS: BMI 40.3
[~2021-09-27 06:53] MED LIST changes: +DEXAMETHASONE SOD PHOSPHATE 4 MG/ML 1 ML VIAL IV ONE; -LACTATED RINGERS 1,000 ML IV SCH; +LIDOCAINE 1% (10MG/ML) FOR IV START INTRADERMA PRN; -LIDOCAINE 1% 20 ML VIAL (10MG/ML) FOR IV START INTRADERMA PRN; +METOCLOPRAMIDE 5 MG/ML 2 ML VIAL IVP PRN; +ONDANSETRON 4 MG/2 ML VIAL IVP ONE; +SCOPOLAMINE 1.5MG/72HR PATCH TRANSDERM ONE; +ceFAZolin 1,000 MG in SODIUM CHLORIDE 0.9% IRRIGATIO 1,000 ML IRRIGATION PRN
[2021-09-27] MEDS: LACTATED RINGERS 1,000 ML IV SCH (07:32)
[2021-09-27] MEDS ORDERED: HYDROmorphone 0.5 MG/0.5 ML SYRINGE IVP ONE (07:58)
[2021-09-27] MEDS ORDERED: LACTATED RINGERS 1,000 ML IV ONE (10:30)
--- NOTE | 2021-09-27 10:39 | FL ---
EXAMINATION TYPE: FL guidance operating room, XR lumbar spine 1V DATE OF EXAM: 09/27/2021 COMPARISON: 08/02/2021 HISTORY: 46-year-old female lumbar stenosis FINDINGS: Intraoperative fluoroscopy during lumbar laminectomy. Surgical instrument is placed along the posteri or elements at L3-L4. FLUOROSCOPY Fluoroscopy time of 4 seconds was used during lumbar laminectomy. 1 image/s document/s the procedure . IMPRESSION: Intraoperative fluoroscopy as above.
[2021-09-27] MEDS ORDERED: ONDANSETRON 4 MG/2 ML VIAL IVP PRN (10:49)
[2021-09-27] MEDS ORDERED: ACETAMINOPHEN TAB 325 MG TAB PO PRN (10:49)
[2021-09-27] MEDS ORDERED: BENZOCAINE/MENTHOL LOZENG 1 EACH LOZENGE MUCOUS MEM PRN (10:49)
[2021-09-27] MEDS ORDERED: KETOROLAC 30 MG/ML 1 ML VIAL IVP PRN (10:49)
[2021-09-27] MEDS ORDERED: HYDROmorphone 1 MG/ML 1 ML SYRINGE IVP PRN (10:49)
--- NOTE | 2021-09-27 10:49 | P.OP ---
Date of Procedure: 09/27/21 Preoperative Diagnosis: Herniated nucleus pulposis L3 4 L4 5, spinal stenosis L3 4 L4 5, lower extremity radiculopathy Postoperative Diagnosis: Same Anesthesia: GETA Pathology: none sent Condition: stable Disposition: PACU Description of Procedure: BRIEF OPERATIVE NOTE Preoperative Diagnosis:Herniated nucleus pulposis L3 4 L4 5, spinal stenosis L3 4 L4 5, lower extremity radiculopathy Postoperative Diagnosis:Herniated nucleus pulposis L3 4 L4 5, spinal stenosis L3 4 L4 5, lower extremity radiculopathy with facet arthrosis Procedure: Laminectomy and decompression with partial medial facetectomy and foraminotomy L3 4 L4 5 Discectomy for decompression L3 4 L4 5 Surgeon: Dr. Irwin Strap Buckler Machine: Riccardo Quinteros is present throughout the entire the case persistence during positioning, dissection, exposure, visualization, and all crucial elements of the case as well as closure. Anesthesia: General anesthesia Estimated blood loss: Approximately 75 mL Complications: None apparent Components implanted: None Disposition: To recovery room in good stable condition. OPERATIVE INDICATIONS The patient has been having issues in their lower back and lower extremities. She's been having severe pain over radicular pattern at L4 and L5 nerve distributions radicular on the left side. She has been significantly debilitated due to the pain with numbness tingling and some weakness at her left lower extremity. She was found have a number of changes at her lumbar spine including disc herniations L3 4 and L4 5 with central and foraminal stenosis is correlated well with her low back and left lower extremity symptoms. The patient has been through conservative treatment. She is not having any prolonged benefit despite aggressive conservative care We discussed various treatment options including surgery, and the patient wishes to proceed with surgery. We discussed the different surgical options ranging from laminectomy and discectomy alone versus the possibility of decompression and fusion. Patient is a number of different degenerative changes in the understands that she may continue to have further degeneration as time goes on and maybe require surgery in the future at her spine. We discussed the risk, patient's alternatives and benefits of surgery including but not limited to, risk of bleeding risk of infection, risk of need for further surgery, risk of decreased, loss of motion, loss of function, nerve damage, paralysis, heart attack, blindness and . OPERATIVE SUMMARY After discussing all the risks, patient alternatives and benefits at length, the patient elected to proceed with surgical intervention, signed informed consent, and presented for their procedure. The patient was seen and examined in the preoperative holding area and the surgical site was marked. The patient was given antibiotics and brought to the operating room. The patient was sedated and intubated by anesthesia in standard fashion. The patient was positioned on to the operating room table in a prone position on the appropriate frame which was well-padded and well molded. We were careful to pad any bony prominences and pressure points. We were careful to maintain the patient's cervical spine and good neutral alignment and position throughout. The patient was prepped and draped in a normal standard fashion. An appropriate timeout and keystone protocol performed. We were able to proceed with the surgery. Fluoroscopy was utilized to establish the appropriate level. The local wound area was infiltrated with local anesthetic. An incision was made at the midline longitudinally over the appropriate levels at L3 4 and 5. Dissection was taken down subcutaneously to the level of the fascia which was split midline. Dissection was taken over the lamina. Intraoperative fluoroscopy was taken which showed a marker at the appropriate level. With the appropriate level positively confirmed, we were able to proceed with laminectomy. The wound was copiously irrigated and suctioned dry as had been done periodically throughout the case. I started at L3 4 and then worked L4 5 similarly. I performed a laminectomy with a combination of curettes and a high-speed bur and Kerrison rongeurs. A small medial facetectomy was performed again further access. A partial foraminotomy was also performed. No was made of significant facet arthrosis. There is evidence of severe stenosis. Portions of the ligamentum flavum were taken down to expose the dura and traversing nerve root. I was able to mobilize the traversing nerve root and gain access to the disc space. Note was made of obvious compression from the disc. Protecting the soft tissue structures, a small annulotomy was established. I was able to pe rform discectomy and remove any extruded disc fragments and any loose fragments from within the disc itself. There is some disc desiccation noted. I tried to preserve the disc annulus that appeared stable. There were no further extruded fragments noted. There is no evidence of dural tear or leak. Good hemostasis maintained. The wound was copiously irrigated and suctioned dry. This was done similarly first at L3 4 and at L4 5. There was irrigated and suctioned dry and I placed 40 mg Depo-Medrol over the peridural space. Good decompression and discectomy was noted. We were able to proceed with closure. The fascia was closed for a watertight closure. The subcuticular tissue was closed with absorbable suture. The wound was cleaned and dried and dressed with the appropriate dressing. The drapes were broken down. The patient was gently rolled back onto their hospital bed being careful to maintain their cervical spine and good neutral alignment and position. They were woken up by anesthesia, extubated, and brought to the recovery room in good stable condition. The patient will be admitted to the hospital for observation and for appropriate postoperative care, medical management and monitoring. We will continue to follow them closely about the postoperative course.
[2021-09-27] MEDS ORDERED: ACETAMINOPHEN TAB 500 MG TAB PO PRN (10:51)
[2021-09-27] MEDS ORDERED: HYDROcodone/APAP 5-325MG 1 EACH TAB PO PRN (10:51)
[2021-09-27] MEDS: HYDROmorphone 1 MG/ML 1 ML SYRINGE IVP PRN ×4 (11:46→15:05)
[2021-09-27] MEDS ORDERED: diphenhydrAMINE 50 MG/ML 1 ML VIAL IVP ONE (14:18)
[2021-09-27] MEDS: HYDROcodone/APAP 5-325MG 1 EACH TAB PO PRN (17:42)
[2021-09-27] MEDS: ALPRAZolam 0.25 MG TAB PO PRN (17:42)
[2021-09-27] MEDS ORDERED: NAPROXEN SODIUM 220 MG PO SCH (21:00)
[2021-09-28] MEDS: HYDROcodone/APAP 5-325MG 1 EACH TAB PO PRN ×3 (00:06→11:19)
[2021-09-28] MEDS: LACTATED RINGERS 1,000 ML IV SCH (04:20)
[2021-09-28] MEDS ORDERED: PANTOPRAZOLE 40 MG TABLET PO SCH (07:30)
[2021-09-28 08:15] VITALS: RESP 16
[2021-09-28] MEDS ORDERED: lamoTRIgine 100 MG TAB PO SCH (09:00)
[2021-09-28] MEDS ORDERED: MULTIVITAMINS, THERA 1 EACH TAB PO SCH (09:00)
[2021-09-28] MEDS ORDERED: CITALOPRAM HYDROBROMIDE 20 MG TAB PO SCH (09:00)
[2021-09-28] MEDS ORDERED: SENNOSIDES-DOCUSATE SODIUM 1 EACH TAB PO SCH (09:00)
[2021-09-28] MEDS: ALPRAZolam 0.25 MG TAB PO PRN (11:19)
[2021-09-28 12:02] VITALS: BP 122/74; PULSE 79; TEMP 98.2
--- NOTE | 2021-09-28 13:02 | P.DS ---
Providers Date of admission: 09/27/2021 Expected date of discharge: 09/28/21 Attending physician: Carmen Irwin Primary care physician: Zahida Ortega - Discharge Diagnosis(es) (1) Lumbar spinal stenosis Current Visit: Yes Status: Acute (2) Lumbar disc herniation Current Visit: Yes Status: Acute (3) Lumbar back pain with radiculopathy affecting left lower extremity Current Visit: Yes Status: Acute (4) Status post laminectomy Current Visit: Yes Status: Acute (5) Low back pain Current Visit: Yes Status: Acute Hospital Course: This is a pleasant 46-year-old female who presented with a L3-4 and L4-5 herniated nucleus pulposus and spinal stenosis with lower extremity radiculopathy who failed outpatient conservative therapy. She was admitted for an L3-4 and L4-5 laminectomy and decompression with discectomy with partial medial facetectomy and foraminotomy. The patient tolerated the procedure well and did well postoperatively. She does continue to have significant left lower extremity radiculopathy which is exacerbated with standing on her left lower extremity. She has been able to ambulate to the restroom. She was able to shower independently today. She states her back pain is well-controlled. She denies any right lower extremity radiculopathy. She denies any lower extremity weakness bilaterally. She is ready for discharge home today. Condition on day of discharge stable. Patient will be discharged home. Patient was cleared preoperatively for surgery by Dr. Ortega. Patient currently denies any nausea, vomiting, fever, or chills. Patient is eating and voiding freely without difficulty. Patient may shower Optifoam dressing intact. Patient may remove Optifoam dressing in 3 days and shower without a dressing at that time. Patient should refrain from driving until at least after their first follow-up appointment in the office. Patient should avoid excessive bending, lifting, and twisting; no lifting greater than 10 pounds. MAPS was previously reviewed. An "Opiod Start Talking" Form has been signed and placed in the patient's chart. A prescription has been written for [place] 5 mg/325 mg, take 1 tab every 6 hours as need for pain, dispensed #28. Prescription has been sent to the patient's pharmacy. Physical Exam on day of discharge: Patient is awake, alert, and oriented 3 Vital signs stable Good chest excursion with deep inspiration and expiration No signs or symptoms of DVT; no calf pain Some pain with palpation over the left ward and lateral calf Extensor hallucis longus, plantarflexion, and dorsiflexion positive sustained bilateral lower extremities Incision is clean, dry, and intact; no erythema, purulence, or signs of infection Optifoam dressing intact Procedures: L3-4 and L4-5 laminectomy and decompression with discectomy with partial medial facetectomy and foraminotomy Patient Condition at Discharge: Stable Plan - Discharge Summary Discharge Rx Participant: Yes New Discharge Prescriptions: New HYDROcodone/APAP 5-325MG [[place] 5] 1 each PO Q6HR PRN #28 tab PRN Reason: Pain No Action Citalopram Hydrobromide [CeleXA] 40 mg PO QAM ALPRAZolam [Xanax] 0.5 tab PO BID PRN PRN Reason: anxiety Multivitamins, Thera [Multivitamin (formulary)] 1 tab PO DAILY Omeprazole 20 mg PO QAM HYDROcodone/APAP 5-325MG [[place] 5-325] 1 tab PO Q8HR PRN PRN Reason: Pain Acetaminophen [Tylenol Extra Strength] 500 - 1,000 mg PO DIRECTED PRN PRN Reason: Pain lamoTRIgine [LaMICtal] 200 mg PO DAILY Naproxen Sodium [Aleve] 440 mg PO BID Discharge Medication List ALPRAZolam [Xanax] 0.5 tab PO BID PRN 04/28/16 [History] Citalopram Hydrobromide [CeleXA] 40 mg PO QAM 04/28/16 [History] Multivitamins, Thera [Multivitamin (formulary)] 1 tab PO DAILY 05/12/17 [History] Omeprazole 20 mg PO QAM 05/12/17 [History] Acetaminophen [Tylenol Extra Strength] 500 - 1,000 mg PO DIRECTED PRN 09/20/21 [History] HYDROcodone/APAP 5-325MG [[place] 5-325] 1 tab PO Q8HR PRN 09/20/21 [History] Naproxen Sodium [Aleve] 440 mg PO BID 09/20/21 [History] lamoTRIgine [LaMICtal] 200 mg PO DAILY 09/20/21 [History] HYDROcodone/APAP 5-325MG [[place] 5] 1 each PO Q6HR PRN #28 tab 09/27/21 [Rx] Follow up Appointment(s)/Referral(s): Carmen Irwin DO [Doctor of Osteopathic Medicine] - 10/11/21 4:00 pm Patient Instructions/Handouts: *Surgery [facility] - Anesthesia Discharge Instructions, Laminectomy (DC) Activity/Diet/Wound Care/Special Instructions: Keep site clean. May shower with waterproof Tegaderm intact. Do not soak in a tub. After 72 hours postoperatively, patient May remove dressing and then may shower with area uncovered. Leave glue intact and allow it to fray off on its own. May ambulate as tolerated. Avoid heavy or rigorous activity. No repetitive bending twisting or lifting. No overhead work. Discharge Disposition: HOME SELF-CARE
== END 2021-09-28 14:30 | disposition home or self-care (01) ==
LOC: OR 06:53 → 5NMEDONC 10:45 → OR 09-28 14:30
PROVIDERS: ATTEND Orthopaedic Surgery Orthopaedic Surgery of the Spine
DX: M48.061 Spinal stenosis, lumbar region without neurogenic claudication (principal); Z20.822 Contact with and (suspected) exposure to COVID-19
CPT/HCPCS: 63030; C9757; 72020; 81025; 86850; 86900; 86901; 87635

== ENCOUNTER → 2023-10-09 | Outpatient (CLI) | payer MEDICARE, OTHER ==
--- NOTE | 2023-10-10 22:11 | MM ---
Reason for Exam: Screening (asymptomatic). Last screening mammogram was performed 12 month(s) ago. Patient History: Menarche at age 9. First Full-Term at age 17. Postmenopausal. Currently using Hormonal Contraceptives, starting at age 40. Paternal cousin had breast cancer, age 35. Risk Values: Radha 5 year model risk: 0.7%. NCI Lifetime model risk: 7.3%. Prior Study Comparison: 06/11/2020 Bilateral Screening Mammogram, [facility]. 07/08/2021 Bilateral Screening Mammogram, [facility]. 10/07/2022 Bilateral MG 3D screening mammo w/cad, [facility]. Tissue Density: There are scattered fibroglandular densities. Findings: Analyzed By CAD. There is no suspicious group of microcalcifications or new suspicious mass in either breast. Overall Assessment: Negative, BI-RAD 1 Management: Screening Mammogram of both breasts in 1 year. . Patient should continue monthly self-breast exams. A clinical breast exam by your physician is recommended on an annual basis. This exam should not preclude additional follow-up of suspicious palpable abnormalities. Note on Radha scores and lifetime risk: 1. A Radha score greater than 3% is considered moderate risk. If this is the case, consider specialist referral to assess eligibility for a risk reducing agent. 2. If overall lifetime risk for the development of breast cancer is 20% or higher, the patient may qualify for future screening with alternating mammogram and breast MRI. Electronically signed and approved by: Ariadne Gomez M.D. Radiologist
== END | disposition home or self-care (01) ==
LOC: RADMAMWWP 09:12
PROVIDERS: ATTEND Family Medicine
DX: Z12.31 Encounter for screening mammogram for malignant neoplasm of breast (principal); Z78.0 Asymptomatic menopausal state; Z80.3 Family history of malignant neoplasm of breast
CPT/HCPCS: 77063; 77067

== ENCOUNTER → 2024-10-21 | Outpatient (CLI) | payer MEDICARE, OTHER ==
--- NOTE | 2024-10-21 09:38 | MM ---
Reason for Exam: Screening (asymptomatic). Last mammogram was performed 1 year(s) and 1 month(s) ago. Patient History: Menarche at age 9. First Full-Term at age 17. Postmenopausal. Currently using Hormonal Contraceptives, starting at age 40. Paternal cousin had breast cancer, age 35. Risk Values: Radha 5 year model risk: 0.8%. NCI Lifetime model risk: 7.1%. Prior Study Comparison: 07/08/2021 Bilateral Screening Mammogram, [facility]. 10/07/2022 Bilateral MG 3D screening mammo w/cad, [facility]. 10/09/2023 Bilateral MG 3D screening mammo w/cad, [facility]. Tissue Density: There are scattered areas of fibroglandular density. Findings: Analyzed By CAD. Central asymmetric density on the right is unchanged. There is no suspicious group of microcalcifications or new suspicious mass in either breast. Overall Assessment: Benign, BI-RAD 2 Management: Screening Mammogram of both breasts in 1 year. Patient should continue monthly self-breast exams. A clinical breast exam by your physician is recommended on an annual basis. This exam should not preclude additional follow-up of suspicious palpable abnormalities. Note on Radha scores and lifetime risk: 1. A Radha score greater than 3% is considered moderate risk. If this is the case, consider specialist referral to assess eligibility for a risk reducing agent. 2. If overall lifetime risk for the development of breast cancer is 20% or higher, the patient may qualify for future screening with alternating mammogram and breast MRI. [facility], , 10/21/2024 9:35 AM. Electronically signed and approved by: Ariadne Gomez M.D. Radiologist
== END | disposition home or self-care (01) ==
LOC: RADMAMWWP 08:00
PROVIDERS: ATTEND Family Medicine
DX: Z12.31 Encounter for screening mammogram for malignant neoplasm of breast (principal); R92.323 Mammographic fibroglandular density, bilateral breasts; Z78.0 Asymptomatic menopausal state; Z80.3 Family history of malignant neoplasm of breast; Z92.0 Personal history of contraception
CPT/HCPCS: 77063; 77067